=== PATIENT | female | born 1990 | race Caucasian/White ===

== ENCOUNTER → 2017-11-30 22:13 | Observation (INO) ==
--- NOTE | 2017-11-30 20:36 | OB/GYN Progress Note ---
Date of Encounter: 11/30/17 Time of Encounter: 20:34 - Assessment and Plan (1) 22 weeks gestation of Current Visit: Yes Status: Acute Vaginosis panel - Negative UA - not indicative of UTI Discharge home with PTL precautions Follow up in office with routine care. (2) Vaginal discharge during in second trimester Current Visit: Yes Status: Acute Subjective - Subjective Principal diagnosis: Leaking of fluid; vaginal spotting Interval history: Ms Cavaozs is a at 22 weeks 3 days gestation that arrives to triage with c/o vaginal discharge and pink spotting that began yesterday. She states positive movement. She denies intercourse in the past 48 hours, headaches , vision changes, epigastric pain, and contractions. Antepartum ROS: new complaints, movement normal, no loss of fluid, no vaginal bleeding, no contractions Objective - Vital Signs Vital Signs: Intake and Output 11/30/17 11/30/17 11/30/17 07:59 15:59 23:59 Other: Weight 98.5 kg Patient Weight 11/30/17 23:59 Weight 98.5 kg - Exam FHR: auscultation normal (FHTs 160 - appropriate for gestation. ) Abdomen: Present: normal appearance, soft, gravid. Absent: tenderness Uterus: Present: normal. Absent: firm, tenderness Comments: SSE - cervix visually closed, moderate amount thick white/milky discharge, no pooling noted, no fluid coming directly from cervix
[2017-11-30 21:27] LABS: Amphetamine Screen,Urine Negative ng/mL (Cutoff=1000); Barbiturate Screen,Urine Negative ng/mL (Cutoff=200); Benzodiazepines Screen,Urine Negative ng/mL (Cutoff=200); Cannabinoid Screen,Urine Negative ng/mL (Cutoff = 50); Cocaine Screen,Urine Negative ng/mL (Cutoff= 300); Opiate Screen,Urine Negative ng/mL (Cutoff=300); Phencyclidine Screen,Urine Negative ng/mL (Cutoff=25)
[2017-11-30 21:31] LABS: Bilirubin,Urine Negative (Negative); Blood,Urine Negative (Negative); Clarity,Urine Clear (Clear); Color,Urine Yellow (Yellow); Glucose,Urine (UA) Normal (Normal); Ketones,Urine Negative (Negative); Leukocyte Esterase,Urine Negative (Negative); Nitrite,Urine Negative (Negative); Protein,Urine Negative (Neg-Trace); Specific Gravity,Urine 1.018 (1.010-1.025); Urobilinogen,Urine Normal (Normal)
[2017-11-30 21:48] LABS: Candida DNA Not Detected (Not Detect); Gardnerella DNA Not Detected (Not Detect); Trichomonas DNA Not Detected (Not Detect)
== END | disposition home or self-care (01) ==
LOC: 1NENULAB
PROVIDERS: ADMIT Advanced Practice Midwife; ATTEND Advanced Practice Midwife

== ENCOUNTER 2018-02-07 13:37 | Observation (INO) ==
[2018-02-07] MEDS ORDERED: Isovue-370 500 ML INFUS..BTL IV ONE ×2 (14:26→14:41)
--- NOTE | 2018-02-07 14:26 | OB/GYN History & Physical ---
Date of Encounter: 02/07/18 Time of Encounter: 14:01 Assessment and Plan (1) 32 weeks gestation of Current visit: Yes Status: Acute NST reactive. No related concerns. Plan for discharge home once CT resulted and pt cleared by internal medicine. (2) Iliac vein thrombosis Current visit: Yes Status: Acute Consult hospitalist recommends to consult hematology. Ish Galindo, horticultural nursery assistant recommends lovenox 1mg/kg BID and CTA of chest to rule out PE. Per hematology pt can be discharged home on lovenox and follow-up with them on Monday. Qualifiers: Laterality: left Qualified Code(s): I82.422 - Acute embolism and thrombosis of left iliac vein (3) Chronic hypertension affecting Current visit: Yes Status: Acute BP stable on metropolol (4) Obesity complicating in third trimester Current visit: Yes Status: Acute History of Present Illness Chief complaint: DVT HPI: Ms. Cavazos is a 27 year old female presenting at 32w2d as a direct admit for DVT. She had an MRI yesterday for left hip pain and thigh numbness that was read as: "heterogenous signal in the left common illiac vein possible artifact or thrombosis". Upon reviewing this result the pt was sent immediately for LE venous doppler. Venous doppler shows distal illiac thrombus. This has been complicated by tachycardia for which pt saw cardiology. Today pt reports some intermittent SOB with ambulation that has been present for the last two weeks. She has not reported this prior to now. Pt denies any contractions, leaking, bleeding or other related complaints. Good FM. Past Med Surg Social Fam HX - Past Medical History Medical history: hypertension Psychiatric history: depression - Social History Smoking Status: Never smoker Alcohol use: none Drug use: none - Family History Mother Living Status: Still Living Hx Family Cardiac Disorders: No Hx Family Respiratory Disorders: No Hx Family Cancer: No Hx Family GI Disorders: No Hx Family Genitourinary Disorders: No Hx Family Endocrine Disorder: No Hx Family Musculoskeletal Disorders: No Hx Family Neuromuscular Disorders: No Hx Family Neurologic Disorders: No Hx Family HEENT Disorders: No Hx Family Autoimmune Disorders: No Hx Family Reproductive Disorders: No Hx Family Psychosocial Disorders: No Hx Family Medical Disorders: No Obstetrical History - Pregnancies : 1 Medications and Allergies Cetirizine HCl [Zyrtec] 10 mg PO DAILY 11/30/17 [History] Cholecalciferol (Vitamin D3) [Vitamin D3] 5,000 unit PO DAILY 11/30/17 [History] Docusate Sodium [Dulcolax Stool Softener] 100 mg PO DAILY 11/30/17 [History] Lactobacillus Acidophilus [Acidophilus Probiotic] 1 mg PO DAILY 11/30/17 [ History] Magnesium Oxide [Magnesium] 250 mg PO DAILY 11/30/17 [History] Metoprolol Succinate 75 mg PO DAILY 11/30/17 [History] Vit #108/Iron/FA [ One Tablet] 1 each PO DAILY 11/30/17 [ History] 3 Allergy/AdvReac Type Severity Reaction Status Date / Time Penicillins Allergy See Verified 11/30/17 20:20 Comments sulfamethoxazole Allergy Rash Verified 11/30/17 20:20 [From Bactrim] trimethoprim [From Bactrim] Allergy Rash Verified 11/30/17 20:20 Review of System OB All systems PM: reviewed and no additional remarkable complaints except as stated Exam - Constitutional Constitutional: well developed, well nourished, no acute distress - HEENT HEENT: Mucus Membranes Moist - Lungs Respiratory exam: CTAB - Cardiovascular Cardiovascular exam: RRR, tachycardia (pulse 100) - Abdomen Abdomen: Present: gravid, non tender - Extremities Extremities exam: normal inspection (normal pulses in feet bilaterally) Results Result Diagrams: 02/07/18 14:44 02/07/18 14:44 All other labs normal.
[2018-02-07 15:12] LABS: Basophils # 0.1 K/mcL (0.0-0.2); Basophils % 0.4 %; Eosinophils # 0.1 K/mcL (0.0-0.6); Eosinophils % 0.7 %; Hematocrit 34.5 % (35.3-44.9); Hemoglobin 11.6 g/dL (11.5-15.4); Lymphocytes # 2.4 K/mcL (0.6-4.6); Lymphocytes % 19.8 %; Mean Corpuscular HGB Conc 33.6 g/dL (31.6-35.5); Mean Corpuscular Hemoglobin 30.9 pg (28.0-33.3); Mean Platelet Volume 9.4 fL (9.4-12.4); Monocytes % 7.8 %; Neutrophils # 8.6 K/mcL (1.6-8.9); Platelet Count 284 K/mcL (140-400); Red Blood Count 3.75 M/mcL (3.82-4.97); Red Cell Distribution Width 13.9 % (11.5-14.5); Segmented Neutrophils % 70.3 %
[2018-02-07 15:16] LABS: Prothrombin Time 11.8 Seconds (9.4-12.1)
[2018-02-07 15:19] LABS: Activated Partial Thrombo Time 29.8 Seconds (26.0-36.0)
[2018-02-07 15:29] LABS: BUN/Creatinine Ratio 11 (6-26); Blood Urea Nitrogen 6 mg/dL (6-20); Carbon Dioxide 23 mEq/L (23-29); Chloride 106 mEq/L (98-107); Sodium 138 mEq/L (136-145)
[2018-02-07 15:30] LABS: Calcium 9.5 mg/dL (8.6-10.3); Glucose 101 mg/dL (70-105); Osmolality,Calculated 284 (280-300); eGFR For Non-African Americans > 60 (> 60)
[2018-02-07 17:06] LABS: Amphetamine Screen,Urine Negative ng/mL (Cutoff=1000); Barbiturate Screen,Urine Negative ng/mL (Cutoff=200); Benzodiazepines Screen,Urine Negative ng/mL (Cutoff=200); Cannabinoid Screen,Urine Negative ng/mL (Cutoff = 50); Cocaine Screen,Urine Negative ng/mL (Cutoff= 300); Opiate Screen,Urine Negative ng/mL (Cutoff=300); Phencyclidine Screen,Urine Negative ng/mL (Cutoff=25)
--- NOTE | 2018-02-07 17:41 | Internal Medicine Consult Note ---
Date of Encounter: 02/07/18 Time of Encounter: 15:00 - Assessment and plan (1) Iliac vein thrombosis Current Visit: Yes Status: Acute Assessment and plan: MRI of the lumbar spine showed a heterogeneous signal in the left common iliac vein. CT PA showed no obvious PE identified and no evidence of right heart strain. Patient is hemodynamically stable and without any acute respiratory distress. Recommendations for patient to be discharged on therapeutic Lovenox (Lovenox 1mg /kg) Patient to follow-up with hematology oncology as outpatient. Qualifiers: Laterality: left Qualified Code(s): I82.422 - Acute embolism and thrombosis of left iliac vein (2) 32 weeks gestation of Current Visit: Yes Status: Acute Assessment and plan: Managed by WET PROCESS MILLER HEAD ASSISTANT (3) Chronic hypertension affecting Current Visit: Yes Status: Acute Assessment and plan: Continue home dose of beta [place] - Time Spent With Patient Total time spent is greater than 50% in coordination of care (as documented) at patient's floor/unit and/or counseling patient: Internal Medicine - CN: HPI - Data of Consult Consult date: 02/07/18 Requesting Physician: Clifton Quintana - Consult Narrative History of present illness: Patient is a 27-year-old female at 32 weeks and 2 days with history of hypertension and mood disorder who presents to the ER on 02/07/18 due to left hip pain. MRI of the hip on 02/06/18 showed no etiology identified to explain left thigh pain. MRI of the lumbar spine showed a heterogeneous signal in the left common iliac vein. Patient was directly admitted to the OB unit for treatment and evaluation of DVT. Hospitalist service was consulted for recommendations for medical management of DVT. Past Med Surg Social Fam HX - Past Medical History Medical history: hypertension Psychiatric history: depression - Past Surgical History Surgical History: non-contributory - Social History Smoking Status: Never smoker Smokeless Tobacco Status: No Alcohol use: none Drug use: none - Family History Mother Living Status: Still Living Hx Family Cardiac Disorders: No Hx Family Respiratory Disorders: No Hx Family Cancer: No Hx Family GI Disorders: No Hx Family Genitourinary Disorders: No Hx Family Endocrine Disorder: No Hx Family Musculoskeletal Disorders: No Hx Family Neuromuscular Disorders: No Hx Family Neurologic Disorders: No Hx Family HEENT Disorders: No Hx Family Autoimmune Disorders: No Hx Family Reproductive Disorders: No Hx Family Psychosocial Disorders: No Hx Family Medical Disorders: No All systems: reviewed and no additional remarkable complaints except as stated Internal Medicine - CN: Meds Cetirizine HCl [Zyrtec] 10 mg PO DAILY 11/30/17 [History] Cholecalciferol (Vitamin D3) [Vitamin D3] 5,000 unit PO DAILY 11/30/17 [History] Docusate Sodium [Dulcolax Stool Softener] 100 mg PO DAILY 11/30/17 [History] Lactobacillus Acidophilus [Acidophilus Probiotic] 1 mg PO DAILY 11/30/17 [ History] Magnesium Oxide [Magnesium] 250 mg PO DAILY 11/30/17 [History] Metoprolol Succinate 75 mg PO DAILY 11/30/17 [History] Vit #108/Iron/FA [ One Tablet] 1 each PO DAILY 11/30/17 [ History] Enoxaparin [Lovenox *PHARMACY WT BASED*] 100 mg SQ Q12HR #60 syringe 02/07/18 [ Rx] 3 Allergy/AdvReac Type Severity Reaction Status Date / Time Penicillins Allergy See Verified 11/30/17 20:20 Comments sulfamethoxazole Allergy Rash Verified 11/30/17 20:20 [From Bactrim] trimethoprim [From Bactrim] Allergy Rash Verified 11/30/17 20:20 Hospitalist - CN: Exam - Constitutional General appearance IM: Present: A&O X 3, no acute distress Exam: As below - Head Head exam: Present: normocephalic - Eye Eye exam: Present: normal appearance - ENT ENT exam: Present: mucous membranes moist - Expanded ENT Exam Mouth exam: Absent: dry mucosa - Respiratory Respiratory exam: Present: CTAB. Absent: accessory muscle use - Cardiovascular Cardiovascular exam IM: Present: RRR - GI/Abdominal Additional comments: Gravid - Extremities Exam Extremities exam IM: Absent: pedal edema - Neurological Exam Neurological exam: Present: alert. Absent: altered - Expanded Neurological Exam Patient oriented to: Present: person, place, time - Psychiatric Psychiatric exam: Present: normal mood - Skin Skin exam IM: Present: normal color Internal Medicine - CN: Reslt - Labs CBC & Chem 7: 02/07/18 14:44 02/07/18 14:44 Labs: Short CBC 02/07/18 Range/Units 14:44 WBC 12.2 H (4.3-11.1) K/mcL Hgb 11.6 (11.5-15.4) g/dL Hct 34.5 L (35.3-44.9) % Plt Count 284 (140-400) K/mcL Neutrophils # 8.6 (1.6-8.9) K/mcL BMP 02/07/18 14:44 Sodium 138 Potassium 4.0 Chloride 106 Carbon Dioxide 23 BUN 6 Creatinine 0.53 L Glucose 101 Calcium 9.5 - ABG Interpretation ABG results: PT/INR, D-dimer PT 11.8 Seconds (9.4-12.1) 02/07/18 14:44 - Impressions Impressions Chest CTA 02/07/18 14:41 IMPRESSION: Suboptimal examination due to respiratory motion artifact. No obvious pulmonary embolism identified. No evidence for right heart strain, dilatation of the main pulmonary artery, or pulmonary infarction. D/ / Scott Ferreira MD / Scott Ferreira MD Interpreting Provider: Scott Ferreira MD Consult Discharge Plan - Plan Referrals: Tere Bautista DO [Primary Care Provider] - Prescriptions: Enoxaparin [Lovenox *PHARMACY WT BASED*] 100 mg SQ Q12HR #60 syringe
[2018-02-07] MEDS ORDERED: *HR* Enoxaparin 100 MG/ML SYRINGE SQ SCH (18:00)
== END 2018-02-07 18:59 | disposition home or self-care (01) ==
LOC: 1NENULAB
PROVIDERS: ADMIT Registered Nurse; ATTEND Registered Nurse

== ENCOUNTER 2018-03-21 04:00 | Inpatient (IN) ==
[2018-03-21] MEDS ORDERED: Naloxone 0.4 MG/ML INJ IVP PRN ×2 (05:21→20:24)
[2018-03-21] MEDS ORDERED: Famotidine 20 MG/2 ML VIAL IVP PRN (05:21)
[2018-03-21] MEDS ORDERED: *HR* Nalbuphine 10 MG/ML AMPUL IVP PRN (05:21)
[2018-03-21] MEDS ORDERED: Ondansetron 4 MG/2 ML VIAL IVP PRN ×2 (05:21→20:24)
[2018-03-21] MEDS ORDERED: Metoclopramide 10 MG/2 ML VIAL IVP PRN (05:21)
[2018-03-21] MEDS ORDERED: Lidocaine 1% 20 ML MDV INFILT PRN (05:21)
[2018-03-21] MEDS ORDERED: Ringers Solution, Lactated 1,000 ML IVC SCH (05:30)
[2018-03-21 06:41] LABS: Amphetamine Screen,Urine Negative ng/mL (Cutoff=1000); Barbiturate Screen,Urine Negative ng/mL (Cutoff=200); Basophils # 0.1 K/mcL (0.0-0.2); Basophils % 0.4 %; Benzodiazepines Screen,Urine Negative ng/mL (Cutoff=300); Cannabinoid Screen,Urine Negative ng/mL (Cutoff = 50); Cocaine Screen,Urine Negative ng/mL (Cutoff= 300); Eosinophils # 0.1 K/mcL (0.0-0.6); Eosinophils % 0.7 %; Hematocrit 35.4 % (35.3-44.9); Immature Granulocytes % 0.9 % (0-4); Lymphocytes # 3.4 K/mcL (0.6-4.6); Lymphocytes % 24.9 %; Mean Corpuscular HGB Conc 33.9 g/dL (31.6-35.5); Mean Corpuscular Hemoglobin 30.8 pg (28.0-33.3); Mean Platelet Volume 9.7 fL (9.4-12.4); Monocytes # 1.1 K/mcL (0.0-1.3); Monocytes % 7.8 %; Neutrophils # 8.8 K/mcL (1.6-8.9); Opiate Screen,Urine Negative ng/mL (Cutoff=300); Phencyclidine Screen,Urine Negative ng/mL (Cutoff=25); Platelet Count 264 K/mcL (140-400); Red Blood Count 3.89 M/mcL (3.82-4.97); Red Cell Distribution Width 13.4 % (11.5-14.5); Segmented Neutrophils % 65.3 %
[2018-03-21] MEDS ORDERED: Acetaminophen 325 MG TABLET PO ONE (08:54)
[2018-03-21] MEDS ORDERED: NIFEdipine 10 MG CAPSULE PO ONE (08:55)
[2018-03-21 08:59] LABS: Alanine Aminotransferase 14 Units/L (7-52); Aspartate Amino Transferase 20 Units/L (13-39); BUN/Creatinine Ratio 17 (6-26); Blood Urea Nitrogen 9 mg/dL (6-20); Lactate Dehydrogenase 154 Units/L (140-271); Uric Acid 5.3 mg/dL (2.3-7.6); eGFR For Non-African Americans > 60 (> 60)
[2018-03-21 09:08] LABS: Protein/Creatinine Ratio,Urine 0.18 mg/mg (0.00-0.20)
--- NOTE | 2018-03-21 10:02 | OB/GYN History & Physical ---
Date of Encounter: 03/21/18 Time of Encounter: 07:00 Assessment and Plan (1) 38 weeks gestation of Current visit: Yes Status: Acute Admit for IOL per [facility] recommendations. Pt has a plan and desires to avoid an epidural if possible. She prefers as little medication for induction as absolutely necessary. Terry balloon placed above cervix using sterile technique. Balloon inflated with 30ml sterile water. Pt tolerated well. Pt to pump breasts and ambulate to stimulate contractions. Will consider AROM vs medication once terry balloon out. POC discussed with Dr. Sandoval. (2) Chronic hypertension affecting Current visit: No Status: Acute BP mild range despite metropolol this am. Procardia 10mg given per Dr. Sandoval's recommendation. PIH labs WNL. Pt to be allowed to ambulate once BP is in the normal range. POC per Dr. Sandoval (3) Iliac vein thrombosis Current visit: No Status: Acute DVT resolved on last doppler exam. Pt on lovenox 100mg BID until 2 days ago. Plan to restart approx 48 hours after delivery with one prophylactic dose lovenox on PPD#1 if low risk for bleeding af ter delivery. This is per recommendation of Dr. Blum. Pt ok for CNM delivery per Dr. Blum as well. Plan for co-management with Dr. Sandoval. Qualifiers: Laterality: left Qualified Code(s): I82.422 - Acute embolism and thrombosis of left iliac vein (4) Obesity complicating in third trimester Current visit: No Status: Acute History of Present Illness Chief complaint: IOL HPI: Ms. Florez is a 27 year old female presenting at 38 weeks 2 days for scheduled IOL. Pt scheduled for IOL per [facility] due to her therapeutic lovenox. Pt diagnosed with DVT in left distal illiac vein during this . Her lovenox is being managed by her behavioral science chair. She has seen [facility] x2 and they recommended stopping lovenox 2 days prior to IOL at 38 weeks gestation. This is also complicated by chronic hypertension and obesity. O positive Rubella and varicella immune Serologies negative GBS negative PIH labs WNL. Past Med Surg Social Fam HX - Past Medical History Medical history: DVT, hypertension Additional medical history: Left Iliac Vein Psychiatric history: depression - Past Surgical History Surgical History: non-contributory Additional surgical history: wisdom teeth extraction - Social History Smoking Status: Never smoker Smokeless Tobacco Status: No Alcohol use: none Drug use: none - Family History Mother Living Status: Still Living Hx Family Cardiac Disorders: No Hx Family Respiratory Disorders: No Hx Family Cancer: No Hx Family GI Disorders: No Hx Family Endocrine Disorder: No Hx Family Neuromuscular Disorders: No Hx Family Neurologic Disorders: No Hx Family HEENT Disorders: No Hx Family Autoimmune Disorders: No Obstetrical History - Pregnancies : 1 Medications and Allergies Cetirizine HCl [Zyrtec] 10 mg PO DAILY 11/30/17 [History] Cholecalciferol (Vitamin D3) [Vitamin D3] 5,000 unit PO DAILY 11/30/17 [History] Docusate Sodium [Dulcolax Stool Softener] 100 mg PO DAILY 11/30/17 [History] Lactobacillus Acidophilus [Acidophilus Probiotic] 1 mg PO DAILY 11/30/17 [History] Magnesium Oxide [Magnesium] 250 mg PO DAILY 11/30/17 [History] Metoprolol Succinate 75 mg PO DAILY 11/30/17 [History] Enoxaparin [Lovenox *PHARMACY WT BASED*] 100 mg SQ Q12HR #60 syringe 02/07/18 [Rx] Ferrous Sulfate [Iron] 325 mg PO DAILY 02/20/18 [History] Formula Tablet 03/21/18 [History] Allergy/AdvReac Type Severity Reaction Status Date / Time Penicillins Allergy See Verified 03/21/18 06:07 Comments sulfamethoxazole Allergy Rash Verified 03/21/18 06:07 [From Bactrim] trimethoprim [From Bactrim] Allergy Rash Verified 03/21/18 06:07 Review of System OB All systems PM: reviewed and no additional remarkable complaints except as stated Exam - Constitutional Constitutional: well developed, well nourished, no acute distress - HEENT HEENT: Mucus Membranes Moist - Lungs Respiratory exam: CTAB - Cardiovascular Cardiovascular exam: RRR, tachycardia (tachycardia noted this am, now improved) - Abdomen Abdomen: Present: gravid, non tender - Extremities Extremities exam: normal inspection Deep Tendon Reflex Grade: 2+ Normal - Vulva Vulva: bilateral: normal - Vagina Vagina: Present: normal moisture - Cervix Dilation: 0 (fingertip) Effacement: 50 Station: -2 - Anus/Rectum Anus/Rectum: Present: normal perianal skin Results Result Diagrams: 03/21/18 06:25 03/21/18 06:25 Abnormal lab results WBC 13.5 K/mcL (4.3-11.1) H 03/21/18 06:25 Creatinine 0.52 mg/dL (0.60-1.20) L 03/21/18 06:25 Urine Total Protein 16 mg/dL (1-14) H 03/21/18 06:25 All other labs normal.
--- NOTE | 2018-03-21 11:15 | OB Labor Progress Note ---
Date of Encounter: 03/21/18 Time of Encounter: 11:13 Labor Progress Note - Subjective Subjective: Pt denies contraction pain at this time. No other complaints. - Cervix Cervix: /-1 - Heart Tones Heart Tones: Category I - Gratis Gratis: rare UC - Interventions Interventions: AROM for small amount blood tinged fluid - Plan Plan: Allow ambulation once BP normal range. Expectant management for now. Will augment with pitocin if needed.
[2018-03-21] MEDS ORDERED: Oxytocin 20 units/ LR 1000 mL 20 UNIT/1,000 ML BAG IVC SCH (14:30)
--- NOTE | 2018-03-21 18:47 | OB Labor Progress Note ---
Date of Encounter: 03/21/18 (n) Time of Encounter: 18:42 Labor Progress Note - Subjective Subjective: Pt reports increasing pain with contractions. - Cervix Cervix: 3-4/70/-1 - Heart Tones Heart Tones: Category I - [place]: Q 2-3 minutes - Interventions Interventions: IUPC and FSE placed. - Plan Plan: Continue to monitor and titrate pitocin. Pitocin decreased to 4mu's at this time.
[2018-03-21] MEDS ORDERED: EPHEDrine 50 MG/ML VIAL IVP PRN (20:24)
[2018-03-21] MEDS ORDERED: *HR* Ropivacaine/PF 0.2% 20 ML VIAL EP ONE (20:24)
[2018-03-21] MEDS ORDERED: *HR* FentaNYL (PF) 100 MCG/2 ML VIAL EP ONE (20:24)
[2018-03-21] MEDS ORDERED: Bupivacaine-MPF 0.25% 10 ML VIAL EP ONE (20:24)
--- NOTE | 2018-03-21 20:29 | Anesthesia Evaluation PreOp ---
Date of Encounter: 03/21/18 Time of Encounter: 20:26 - Past History Planned Operation: OLIVIA Cardiac History: Arrhythmia (hx tachycardia during , currently treated with metoprolol- last dose 529), Other (Procardia dose today for HTN) Pulmonary History: Denies Any Significant HX PACKER INSULATION History: Denies Any Significant HX Other Medical History: Denies Any Significant HX, Other (Left Iliac DVT treated with lovenox BID. Last dose Monday) Anesthesia History: No Prior Anesthetic Complications, Past Anesthesia ([place] teeth extraction) : Yes Test: Positive Alcohol Use: none Drug use: none Medications and Allergies Cetirizine HCl [Zyrtec] 10 mg PO DAILY 11/30/17 [History] Cholecalciferol (Vitamin D3) [Vitamin D3] 5,000 unit PO DAILY 11/30/17 [History] Docusate Sodium [Dulcolax Stool Softener] 100 mg PO DAILY 11/30/17 [History] Lactobacillus Acidophilus [Acidophilus Probiotic] 1 mg PO DAILY 11/30/17 [History] Magnesium Oxide [Magnesium] 250 mg PO DAILY 11/30/17 [History] Metoprolol Succinate 75 mg PO DAILY 11/30/17 [History] Enoxaparin [Lovenox *PHARMACY WT BASED*] 100 mg SQ Q12HR #60 syringe 02/07/18 [Rx] Ferrous Sulfate [Iron] 325 mg PO DAILY 02/20/18 [History] Formula Tablet 03/21/18 [History] Allergy/AdvReac Type Severity Reaction Status Date / Time Penicillins Allergy See Verified 03/21/18 06:07 Comments sulfamethoxazole Allergy Rash Verified 03/21/18 06:07 [From Bactrim] trimethoprim [From Bactrim] Allergy Rash Verified 03/21/18 06:07 - Meds/Allergy Pre-op Review Medications Reviewed: Yes Allergies Reviewed: Yes Beta Blockers on Current Med List: No Anesthesia Results - Labs 03/21/18 06:25 03/21/18 06:25 Anesthesia Exam BP 129/75 T 98.2 P 96 R 16 Height: 5'3" Weight: 105.8 NPO (# of Hours): 5 hrs Pain Scale: 4 Pain Scale Used: Numeric (1 - 10) - HEENT Pupil (Motor): Pupils equal Mallampati: II Teeth: Normal Oral Opening: Greater than 3 - PACKER INSULATION LOC: Oriented PACKER INSULATION Motor: Normal RUE, Normal LUE, Normal RLE, Normal LLE, Normal Face PACKER INSULATION Sensory: Normal: RUE, LUE, RLE, LLE, Face - Cardiac Rhythm: Regular Murmur: None JVD: No Carotid Bruit: No - Pulmonary Breath Sounds: bilateral Clear Respiratory Effort: Symmetrical Anesthesia Assess/Plan ASA Score: 2 Modified Olman Scale for Level of Consciousness: Cooperative, oriented, and tranquil Anesthetic Plan: Regional Autologous Blood: No Monitoring Plan: Standard Monitors Recovery Plan: Other
[2018-03-21] MEDS ORDERED: Epidural Premix (fent/bupiv) 110 ML EP SCH (20:30)
[2018-03-21] MEDS ORDERED: *HR* FentaNYL (PF) 100 MCG/2 ML VIAL ONE (20:45)
[2018-03-21] MEDS ORDERED: *HR* Ropivacaine/PF 0.2% 20 ML VIAL ONE (20:46)
[2018-03-21] MEDS ORDERED: Lidocaine -MPF 2% 5 ML VIAL ONE (20:46)
--- NOTE | 2018-03-21 21:25 | Anesthesia Procedures ---
Date of Encounter: 03/21/18 Time of Encounter: 20:49 Procedures: Anesthesia - Epidural/Spinal Patient ID/Chart reviewed: Yes Patient examined: Yes OB Eval: Gestational age: 38.2 OB Eval: : 1 OB Eval: Hx Para: 0 OB Eval: Dilated at (cm): 4 OB Eval: Contractions: Non-stressed pattern Consent Obtained: Yes Supplemental Oxygen: None/Room Air Site Prep: Aseptic Technique, Sterile prep and drape, Povidone-Iodine 1% Patient position: upright Local Anesthetic: Lidocaine 1% Amount of Local Anesthetic used: 3 Touhy Needle Gauge: 18 Touhy Needle Depth (cm): 6 Catheter Depth at Skin (cm): 15 Test Dose (1.5% Lido + Epi): Volume given (mls): 3 Test Dose Result: Negative Loading Dose: Fentanyl (mcg): 100 Loading Dose: Other: Ropivicaine 0.2% 8ml Loading Dose Administered: Thru Catheter Infusion Med: 0.125% Bupivacaine w/ 2 mcg/ml Fentanyl Infusion Rate (mls/hr): [address]: Tegaderm, Tape Interspace Used: L4-L5 Loss of Resistance (YOUSIF): Yes Blood: No CSF: No Paresthesia: No Procedure: OLIVIA placed 2nd pass in upright position without any immediate noted complications. VSS and FHT stable throughout. Vitals + FHT's: 2049 BP 126/77 P 103 R 20 2116 BP 132/77 P 105 R 16 FT 140s
--- NOTE | 2018-03-22 07:14 | Anesthesia Progress Note ---
Date of Encounter: 03/22/18 Time of Encounter: 07:05 Anesthesia Note - Note Note: 03/22/18 07:12 Called to patient bedside for stabbing pain in her groin. Epidural in position as originally placed. Bolus dose Naropin 0.2% 8ml administered for discomfort. Pt stating immediate relief.
[2018-03-22] MEDS ORDERED: Lidocaine -MPF 2% 5 ML VIAL ONE (07:42)
[2018-03-22] MEDS ORDERED: Acetaminophen 325 MG TABLET PO ONE (09:56)
--- NOTE | 2018-03-22 10:43 | Anesthesia Progress Note ---
Date of Encounter: 03/22/18 Time of Encounter: 07:55 Anesthesia Note - Note Note: 03/22/18 07:55 Called to bedside for abdominal pain with contractions. Epidural dressing removed and catheter pulled back to 10cm at skin prior to applying a new sterile dressing. Bolus with 5cc 2% lidocaine plain. Will reassess in 10 min
--- NOTE | 2018-03-22 10:47 | OB Labor Progress Note ---
Date of Encounter: 03/22/18 Time of Encounter: 08:49 Labor Progress Note - Subjective Subjective: Pt now more comfortable after epidural bolus - Cervix Cervix: 7/100/0 - Heart Tones Heart Tones: Category I - [place]: 2-3 minutes - Plan Plan: Continue to monitor and reposition frequently. POC discussed with Dr. Anderson. Will begin antibiotics given membranes have been ruptured for >18 hours. Anticipate .
[2018-03-22] MEDS ORDERED: *HR* HYDROmorphone (PF) 1 MG/ML SYRINGE IVP ONE ×2 (12:10→14:23)
[2018-03-22] MEDS ORDERED: Chloroprocaine/PF 20 ML VIAL INFILT ONE (12:15)
--- NOTE | 2018-03-22 12:23 | Anesthesia Progress Note ---
Date of Encounter: 03/22/18 Time of Encounter: 12:20 Anesthesia Note - Note Note: 03/22/18 12:21 Called to bedside after delivery to assess pain level during repair of grade 2 vaginal tear. After discussion with Dr Anderson and Nguyen Jay, PHYS ASSISTANT it was decided to dose the epidural with 10cc 3% chloroprocaine to give time to repair tear.
[2018-03-22 12:37] LABS: Basophils % 0.2 %; Hemoglobin 12.6 g/dL (11.5-15.4); Lymphocytes # 1.7 K/mcL (0.6-4.6); Lymphocytes % 6.8 %; Mean Corpuscular HGB Conc 33.2 g/dL (31.6-35.5); Mean Corpuscular Hemoglobin 30.7 pg (28.0-33.3); Mean Corpuscular Volume 92.5 fL (83.0-100.0); Mean Platelet Volume 9.7 fL (9.4-12.4); Monocytes # 1.5 K/mcL (0.0-1.3); Monocytes % 6.1 %; Platelet Count 315 K/mcL (140-400); Red Blood Count 4.11 M/mcL (3.82-4.97); Red Cell Distribution Width 13.7 % (11.5-14.5); Segmented Neutrophils % 85.9 %
[2018-03-22 12:38] LABS: Basophils # 0.1 K/mcL (0.0-0.2)
[2018-03-22] MEDS ORDERED: *HR* Phenylephrine 10 MG/ML VIAL ONE (12:40)
[2018-03-22 12:50] LABS: Prothrombin Time 11.5 Seconds (9.4-12.1)
[2018-03-22 12:51] LABS: Activated Partial Thrombo Time 27.6 Seconds (26.0-36.0)
--- NOTE | 2018-03-22 12:58 | OB/GYN Procedure Note ---
Delivery - Delivery Date: 03/22/18 Provider: Nguyen Hood Intrapartum events: prolonged labor- > = 20hr Delivery induction: AROM, terry Delivery augmentation: pitocin Delivery monitor: internal FHT, internal uterine Anesthesia: epidural Quantitated Blood Loss: 1,000 - Infant (s) A Infant Delivery Date: 03/22/18 Delivery Time: 11:59 Presentation: vertex Position: OA Route of delivery: Gender: Male Viability: Viable Pounds: 7 Ounces: 14 Weight Gram: 3.585 kg at 1 minute: 6 at 5 mins: 9 Shoulder Dystocia: encountered Shoulder Dystocia Maneuvers: Rip maneuver, Huang Screw maneuver Specimens collected: cord blood, venous cord gases, arterial cord gases Placenta: spontaneous Cord: nuchal cord, 3 umbilical vessels, nuchal reduced - Repair Episiotomy: none Laceration Description: Perineal - 1st Degree - Complications Delivery complications: hemorrhage, uterine atony Delivery comments: Pt presented for IOL per MFM recommendation. She underwent terry and AROM and then received pitocin augmentation. She received an epidural for pain control. She then progressed slowly to . At delivery of the head a loose nuchal was easily reduced. A turtle sign was then noted and shoulder dystocia was immediately recognized. At this time we called for help. Delivery of the posterior arm was attempted but unsuccessful. Rotational maneuvers were then employed. The was in ANDREW position. Gentle pressure was applied to the posterior shoulder to rotate the baby to direct OA position. The shoulders then followed with maternal effort only. Total dystocia time <1 minute. No traction was placed on head at any time. Dr. Anderson arrived at the time of delivery. At this time the cord was milked and cut and the placenta delivered spontaneous and intact. Brisk lochia was immediately noted. At this time the IV access with pitocin was found to be out. Cytotec 1000mcg rectal and 10units pitocin IM were given while bimanual compression was held. Brisk lochia continued. EBL at this time was 700ml. A new IV was placed and labs were drawn. Tachycardia to the 140's was noted at this time. BP stable. IV fluids started for bolus. Dr. Anderson assessed pt at this time and performed bimanual exam. Fundus began to firm and lochia became electronic assembler. EBL 1000ml total. A first degree laceration was repaired with 2-0 monocryl. Following procedure pt is and reports feeling tired but otherwise well. The was 7lbs 14oz with apgars 6 at one minute and 9 at five minutes. Maternal hgb 12.6 with CBC drawn during procedure. Will hold transfusion at this time. Entire plan was discussed throughout procedure with Dr. Anderson who was in attendance. Plan to restart lovenox on 03/24 per [facility] recommendations. - Disposition Mom disposition: stable in LDR [place] disposition: stable in LDR
--- NOTE | 2018-03-22 17:18 | Event Note ---
<Nicole Topete - Last Filed: 03/22/18 18:00> Date of Encounter: 03/22/18 Time of Encounter: 16:00 RN contacted OB team to inform that the patient had one episode of painless hemoptysis. I went to the bedside to further assess the patient. HPI: Patient is a 27 yr old female s/p vaginal delivery and post hemorrhage today. complicated by left iliac DVT and lovenox therapy. The last ultrasound study of the iliac DVT was performed about 2 weeks ago and showed resolution of DVT. Lovenox was discontinued 2 days ago in anticipation of labor. About 4 hours after delivery, the patient was resting in her room when she had one episode of painless hemoptysis. She stated that she felt mucus in her throat and coughed into a paper towel which had about 3 cm of bright red sputum expressed. She denied chest pain, pleuritic chest pain, shortness of breath, lightheadedness, presyncope, or calf pain. Vitals: HR 99, RR 12, BP 132/82 and spo2 96% Exam Cardio: RRR, no murmurs rubs or gallops Pulm: Clear to auscultation bilaterally, no wheezes, rales or rhonchi, symmetrical chest expansion Abdomen: soft, non distended, normal bowel sounds Extremities: 1+ edema bilaterally, no erythema, no cords, no tenderness to palpation. Maria Alejandra sign negative bilaterally. Assessment/plan Hemoptysis: hospitalist service was consulted to evaluate for DVT/PE. Per hospitalist, ordered 2 view chest XR and awaiting their plan for management. <Yamilka Anderson - Last Filed: 03/22/18 18:29> Attending Adm Certification - Admission Certification Admission Certification: For traditional Medicare patients the provided hospital inpatient services are reasonable and necessary and in the case of services not specified as inpatient-only under 42 CFR 419.22 (n), that they are appropriately provided as inpatient services in accordance 42 CFR 412.3. For Critical Access Hospital the patient may reasonably be expected to be discharged or transferred to a hospital within 96 hours after admission to the Critical Access Hospital. [facility] Certification: I certify that the beneficiary may reasonable be expected to be discharged or transferred to a hospital within 96 hours after admission to the Critical Access Hospital ([facility]). - Attending Attestation yamilka anderson md facog
[2018-03-22] MEDS ORDERED: Ibuprofen 600 MG TABLET PO PRN ×2 (18:44→18:49)
[2018-03-22] MEDS ORDERED: Acetaminophen 325 MG TABLET PO PRN (18:49)
[2018-03-22] MEDS ORDERED: Measles/Mumps/Rubella Vacc 0.5 ML VIAL SQ PRN (18:49)
--- NOTE | 2018-03-22 18:50 | Event Note ---
<Nicole Topete - Last Filed: 03/22/18 18:45> Date of Encounter: 03/22/18 Time of Encounter: 18:46 I went to speak to patient to let her know the results of chest XR and the plan as discussed with hospitalist in regards to further workup for DVT/PE. The patient is declining restarting lovenox therapy at 12 hours post as recommended by hospitalist. The hospitalist was called to discuss further management and work up of suspected DVT/PE with the patient. <Michael Anderson - Last Filed: 03/22/18 20:20> Michael Anderson MD FACOGl
[2018-03-22] MEDS ORDERED: Oxytocin 20 units/ LR 1000 mL 20 UNIT/1,000 ML BAG IVC SCH (19:00)
--- NOTE | 2018-03-22 20:15 | Internal Medicine Consult Note ---
Date of Encounter: 03/22/18 Time of Encounter: 18:00 - Assessment and plan (1) Hemoptysis Current Visit: Yes Status: Acute (2) Iliac vein thrombosis Current Visit: No Status: Acute Qualifiers: Laterality: left Qualified Code(s): I82.422 - Acute embolism and thrombosis of left iliac vein (3) HTN (hypertension) Current Visit: Yes Status: Acute Qualifiers: Hypertension type: essential hypertension Qualified Code(s): I10 - Essential (primary) hypertension - Time Spent With Patient Total time spent is greater than 50% in coordination of care (as documented) at patient's floor/unit and/or counseling patient: 25 - 35 minutes Internal Medicine - CN: HPI - Data of Consult Patient: new to practice Consult date: 03/22/18 Requesting Physician: Clifton Quintana - Consult Narrative Reason for consult: Hemoptysis History of present illness: I saw this patient around 6 PM. HPI: The patient is a 27-year-old woman. She had her vaginal delivery today late morning. It went in without any complications. It was around 3 PM when she had a short episode of coughing. She expectorated a small amount of pinkish/reddish in color phlegm. It was only one episode. Not associated with any other symptoms. Denies chest pain. Denies difficulty breathing. Pulse ox is 95% on room air. Basically, she feels normal self. It was on February 07, when she was diagnosed with DVT in distal left iliac vein. Subsequently, she was consulted by Dr. Galindo, hematology/oncology on February 09. He recommended subcutaneous Lovenox for the time of her . He recommended switching her to oral warfarin after delivery. Interestingly, repeated venous duplex on 02/21/18 showed normal findings. Her last dose of Lovenox was on March 18. The patient is not tachycardic or tachypneic. She maintains good blood pressure. Denies pain in legs. Denies abdominal pain, nausea and vomiting. She makes good amounts of urine. PAST MEDICAL HX: Positive for hypertension. She has no other significant problems. REVIEW OF SYSTEMS: All 14 organ systems were reviewed by me with the patient. Positive and pertinent negative findings are listed above. The rest of organ systems is negative. PHYSICAL EXAM: Skin: Free of rash and discoloration. Eyes: Sclera is white. There is no discharge from eyes. ENMT: Oral/pharyngeal mucosa is normal in appearance. There is no discharge from nose or ears. Respiratory: Normal breath sounds with no crackles and wheezes bilaterally. CV: Heart is regular with no gallop or murmur. GI: Abdomen is flat and soft with no palpable mass or visceromegaly. : There is no tenderness in patient's flanks bilaterally. Neuro exam: He has good strength in upper and lower extremities. He has normal eye movements. Psychiatric: He has normal affect. His thought process is appropriate to the situation. Additional testing: Hemoglobin is 12.6. WBC is 24.4 thousand; 13.5 thousand yesterday. She has normal platelet count. Pro time INR is 1.0. Her PTT is 27.6. Fibrinogen is 670. Her d-dimer is a 5493. The patient has normal BMP. Chest x-ray shows normal findings. Assessment and Plan: A short lasting episode of coughing with expectoration of a small amount of phlegm with a very small amount of blood. She does have history of her DVT; as described above. There is no other finding supporting diagnosis of pulmonary embolism. We could start this patient on Lovenox about 12 hours after delivery. However, the patient does not agree for that. She would rather like to started about 24 hours after delivery, as recommended by her tester semiconductor packages/oncologist. I will contact with Dr. Galindo as soon as possible (likely tomorrow morning). The patient is also refusing repeated venous duplex of lower extremities. I discussed my findings with resident physician in [facility] floor. Hypertension. Under control. We will re-start her Toprol XL. Past Med Surg Social Fam HX - Past Medical History Medical history: DVT, hypertension Additional medical history: Left Iliac Vein Psychiatric history: depression - Past Surgical History Surgical History: non-contributory Additional surgical history: wisdom teeth extraction - Social History Smoking Status: Never smoker Smokeless Tobacco Status: No Alcohol use: none Drug use: none - Family History Mother Living Status: Still Living Hx Family Cardiac Disorders: No Hx Family Respiratory Disorders: No Hx Family Cancer: No Hx Family GI Disorders: No Hx Family Endocrine Disorder: No Hx Family Neuromuscular Disorders: No Hx Family Neurologic Disorders: No Hx Family HEENT Disorders: No Hx Family Autoimmune Disorders: No Internal Medicine - CN: Meds Cetirizine HCl [Zyrtec] 10 mg PO DAILY 11/30/17 [History] Cholecalciferol (Vitamin D3) [Vitamin D3] 5,000 unit PO DAILY 11/30/17 [History] Docusate Sodium [Dulcolax Stool Softener] 100 mg PO DAILY 11/30/17 [History] Lactobacillus Acidophilus [Acidophilus Probiotic] 1 mg PO DAILY 11/30/17 [History] Magnesium Oxide [Magnesium] 250 mg PO DAILY 11/30/17 [History] Metoprolol Succinate 75 mg PO DAILY 11/30/17 [History] Enoxaparin [Lovenox *PHARMACY WT BASED*] 100 mg SQ Q12HR #60 syringe 02/07/18 [Rx] Ferrous Sulfate [Iron] 325 mg PO DAILY 02/20/18 [History] Formula Tablet 03/21/18 [History] Allergy/AdvReac Type Severity Reaction Status Date / Time Penicillins Allergy See Verified 03/21/18 06:07 Comments sulfamethoxazole Allergy Rash Verified 03/21/18 06:07 [From Bactrim] trimethoprim [From Bactrim] Allergy Rash Verified 03/21/18 06:07 Hospitalist - CN: Exam - Constitutional Vitals: Temp Pulse Resp BP Pulse Ox 98.8 F 100 18 132/84 97 03/22/18 17:00 03/22/18 17:00 03/22/18 17:00 03/22/18 17:00 03/22/18 17:00 General appearance IM: Present: A&O X 3, no acute distress, answers questions appropriately Exam: xx Internal Medicine - CN: Reslt - Labs CBC & Chem 7: 03/22/18 21:20 03/21/18 06:25 Labs: Short CBC 03/22/18 Range/Units 12:14 WBC 24.4 H D (4.3-11.1) K/mcL Hgb 12.6 (11.5-15.4) g/dL Hct 38.0 (35.3-44.9) % Plt Count 315 (140-400) K/mcL Neutrophils # 21.0 H (1.6-8.9) K/mcL - ABG Interpretation ABG results: PT/INR, D-dimer PT 11.5 Seconds (9.4-12.1) 03/22/18 12:14 D-Dimer 5493 ng/mLFEU (0-500) H 03/22/18 18:14 - Impressions Impressions Chest X-Ray 03/22/18 16:31 IMPRESSION: No acute cardiopulmonary disease. D/ / Cesar Dent MD / Cesar Dent MD Interpreting Provider: Cesar Dent MD Consult Discharge Plan - Plan Referrals: Tere Bautista DO [Primary Care Provider] -
[2018-03-22] MEDS: Ibuprofen 600 MG TABLET PO PRN (20:37)
[2018-03-22 21:34] LABS: Immature Granulocytes % 0.8 % (0-4)
[2018-03-22 21:36] LABS: Basophils # 0.1 K/mcL (0.0-0.2); Basophils % 0.2 %; Hematocrit 26.8 % (35.3-44.9); Lymphocytes # 3.6 K/mcL (0.6-4.6); Lymphocytes % 12.6 %; Mean Corpuscular HGB Conc 33.6 g/dL (31.6-35.5); Mean Corpuscular Volume 92.4 fL (83.0-100.0); Mean Platelet Volume 9.6 fL (9.4-12.4); Monocytes # 1.8 K/mcL (0.0-1.3); Monocytes % 6.2 %; Neutrophils # 22.7 K/mcL (1.6-8.9); Platelet Count 219 K/mcL (140-400); Red Cell Distribution Width 13.6 % (11.5-14.5); Segmented Neutrophils % 80.2 %
[2018-03-22 21:57] LABS: Platelet Estimate Normal (Normal)
[2018-03-23] MEDS ORDERED: *HR* Enoxaparin 120 MG/0.8 ML SYRINGE SQ SCH
[2018-03-23] MEDS: Ibuprofen 600 MG TABLET PO PRN ×3 (04:25→18:53)
[2018-03-23 06:00] LABS: Basophils # 0.1 K/mcL (0.0-0.2); Basophils % 0.3 %; Eosinophils # 0.1 K/mcL (0.0-0.6); Eosinophils % 0.6 %; Hematocrit 26.4 % (35.3-44.9); Hemoglobin 8.7 g/dL (11.5-15.4); Immature Granulocytes % 1.1 % (0-4); Lymphocytes # 3.9 K/mcL (0.6-4.6); Lymphocytes % 17.8 %; Mean Corpuscular Hemoglobin 30.7 pg (28.0-33.3); Mean Corpuscular Volume 93.3 fL (83.0-100.0); Mean Platelet Volume 9.6 fL (9.4-12.4); Monocytes # 1.4 K/mcL (0.0-1.3); Monocytes % 6.5 %; Neutrophils # 16.1 K/mcL (1.6-8.9); Platelet Count 183 K/mcL (140-400); Red Blood Count 2.83 M/mcL (3.82-4.97); Red Cell Distribution Width 13.9 % (11.5-14.5); Segmented Neutrophils % 73.7 %
[2018-03-23] MEDS: Prenatal Vit/FA 1 EACH TABLET PO SCH (09:06)
[2018-03-23] MEDS: Cholecalciferol (D-3) 1,000 UNIT TABLET PO SCH (09:06)
[2018-03-23] MEDS: Loratadine 10 MG TABLET PO SCH (09:06)
--- NOTE | 2018-03-23 09:29 | OB/GYN Progress Note ---
Date of Encounter: 03/23/18 Time of Encounter: 09:27 - Assessment and Plan (1) Chronic hypertension affecting Current Visit: No Status: Acute Metropolol restarted by hospitalist (2) Iliac vein thrombosis Current Visit: No Status: Acute Plan to restart lovenox later today or tomorrow after hospitalist discusses POC with [employer]. Qualifiers: Laterality: left Qualified Code(s): I82.422 - Acute embolism and thrombosis of left iliac vein (3) Vaginal delivery Current Visit: Yes Status: Acute Pt meeting PPD1 milestones. Continue to work on . Anticipate discharge home PPD#2. (4) Patient is a currently breast-feeding mother Current Visit: Yes Status: Acute Subjective - Subjective Interval history: Pt reports she is still very tired but otherwise feeling better this am. She has not had any additional bloody sputum. She had a negative venous doppler last evening. She reports lochia is normal. She continues to work on . Her perineal pain is controlled with Motrin. Patient reports: appetite normal, voiding normally, pain well controlled, ambulating normally [place]: doing well Objective - Latest Vital Signs Latest vital signs: Vital Signs Temp Pulse Resp BP Pulse Ox 03/23/18 08:30 97.9 F 89 16 128/76 96 03/23/18 04:00 97.6 F 97 18 127/93 98 03/22/18 20:30 98 F 105 18 130/81 97 03/22/18 17:00 98.8 F 100 18 132/84 97 03/22/18 16:00 98.8 F 94 18 109/63 97 Intake and Output 03/22/18 03/23/18 03/23/18 23:59 07:59 15:59 Intake Total 1000 / 1000 100 / 100 Output Total 1400 / 1400 250 / 250 Balance -400 / -400 -150 / -150 Intake: IV Fluids 100 / 100 100 / 100 Ancef 2,000 MG In 0.9 % Sodium 100 / 100 100 / 100 Chloride 100 ML @ 200 mls/hr IVPB Q8HR [facility] Rx#:[id number] Oral 900 / 900 Output: Urine 150 / 150 250 / 250 Catheter 1250 / 1250 Other: Stool Size Small Weight 103.873 kg Patient Weight 03/23/18 23:59 Weight 103.873 kg - Exam Lungs: bilateral: normal Chest: Normal S1, Normal S2 Extremities: Present: edema (2+ bilaterally, no erythema or warmth) Abdomen: Present: soft Uterus: Present: firm - Labs Labs: Laboratory Results - last 24 hr 03/21/18 03/22/18 03/22/18 06:25 12:14 12:14 WBC 24.4 H D RBC 4.11 Hgb 12.6 Hct 38.0 MCV 92.5 MCH 30.7 MCHC 33.2 RDW 13.7 Plt Count 315 MPV 9.7 Immature Gran % 1.0 Seg Neutrophils % 85.9 Lymphocytes % 6.8 Monocytes % 6.1 Eosinophils % 0.0 Basophils % 0.2 Neutrophils # 21.0 H Lymphocytes # 1.7 Monocytes # 1.5 H Eosinophils # 0.0 Basophils # 0.1 Platelet Estimate PT 11.5 INR 1.0 APTT 27.6 Fibrinogen 670 H D-Dimer Blood Type O POSITIVE Antibody Screen NEGATIVE Crossmatch See Detail 03/22/18 03/22/18 03/23/18 18:14 21:20 05:43 WBC 28.3 H 21.7 H RBC 2.90 L 2.83 L Hgb 9.0 L D 8.7 L Hct 26.8 L 26.4 L MCV 92.4 93.3 MCH 31.0 30.7 MCHC 33.6 33.0 RDW 13.6 13.9 Plt Count 219 183 MPV 9.6 9.6 Immature Gran % 0.8 1.1 Seg Neutrophils % 80.2 73.7 Lymphocytes % 12.6 17.8 Monocytes % 6.2 6.5 Eosinophils % 0.0 0.6 Basophils % 0.2 0.3 Neutrophils # 22.7 H 16.1 H Lymphocytes # 3.6 3.9 Monocytes # 1.8 H 1.4 H Eosinophils # 0.0 0.1 Basophils # 0.1 0.1 Platelet Estimate Normal PT INR APTT Fibrinogen D-Dimer 5493 H Blood Type Antibody Screen Crossmatch
[2018-03-23] MEDS ORDERED: Benzocaine/Menthol 56 GM AEROSOL SPRAY TP ONE (09:49)
--- NOTE | 2018-03-23 12:34 | Oncology Inp Consult Note ---
<Mirta Villalta L - Last Filed: 03/23/18 13:34> Date of Encounter: 03/23/18 Time of Encounter: 12:33 Assessment and Plan (1) May-Thurner syndrome Status: Acute Assessment and plan: Discussed ongoing need for anticoagulation for 6-8 weeks in the period secondary to patients continued high risk for thrombus She has had no significant bleeding since delivery about 24 hours ago Repeat LLE doppler is negative She had small amount of hemoptysis with coughing earlier this morning, no cough, SOB, hemoptysis since that time, chest pain/pain with inspiration Patient is Dr. Chapman recommends Lovenox at prophylactic dosing of 40 mg Q24H for 6-8 weeks This may be initiated this evening She is to monitor for any s/s of increased bleeding or s/s of DVT/PE She will follow up with Dr. Chapman in 4 weeks - Data of Consult Patient: known to practice within the last 3 years Consult date: 03/23/18 Requesting Physician: Clifton Quintana Primary Care Provider: Joyce Mercer - Consult Narrative Reason for consult: May Thurner Syndrome History of present illness: Ms. Florez is a 27 year old female known to our practice with May Thurner Syndrome. She had a venous doppler on 02/07/2018 which demonstrated an acute thrombus in the left distal iliac vein. She was started on lovenox and this was continued weight based until 2 days prior to her induction. Ms. Flroez had a vaginal delivery about 24 hours ago (around noon on 03/22/18). She had a first degree laceration which was repaired. Lochia is reported to be normal per L&D team. She had a small amount of hemoptysis once earlier this morning following coughing. She denies chest pain, SOB or pain with inspiration. She has a history of tachycardia and HTN for which she has taken metoprolol for since the age of 22. Her vital are stable, O2 sats WNL on room air. Doppler of the LLE was completed today with normal exam. Hematology has been consulted for further recommendations. Past Med Surg Social Fam HX - Past Medical History Medical history: DVT, hypertension Additional medical history: Left Iliac Vein Psychiatric history: depression - Past Surgical History Surgical History: non-contributory Additional surgical history: wisdom teeth extraction - Social History Smoking Status: Never smoker Smokeless Tobacco Status: No Alcohol use: none Drug use: none - Family History Mother Living Status: Still Living Hx Family Cardiac Disorders: No Hx Family Respiratory Disorders: No Hx Family Cancer: No Hx Family GI Disorders: No Hx Family Endocrine Disorder: No Hx Family Neuromuscular Disorders: No Hx Family Neurologic Disorders: No Hx Family HEENT Disorders: No Hx Family Autoimmune Disorders: No Medications and Allergies Cetirizine HCl [Zyrtec] 10 mg PO DAILY 11/30/17 [History] Cholecalciferol (Vitamin D3) [Vitamin D3] 5,000 unit PO DAILY 11/30/17 [History] Docusate Sodium [Dulcolax Stool Softener] 100 mg PO DAILY 11/30/17 [History] Lactobacillus Acidophilus [Acidophilus Probiotic] 1 mg PO DAILY 11/30/17 [History] Magnesium Oxide [Magnesium] 250 mg PO DAILY 11/30/17 [History] Metoprolol Succinate 75 mg PO DAILY 11/30/17 [History] Enoxaparin [Lovenox *PHARMACY WT BASED*] 100 mg SQ Q12HR #60 syringe 02/07/18 [Rx] Ferrous Sulfate [Iron] 325 mg PO DAILY 02/20/18 [History] Formula Tablet 03/21/18 [History] Allergy/AdvReac Type Severity Reaction Status Date / Time Penicillins Allergy See Verified 03/21/18 06:07 Comments sulfamethoxazole Allergy Rash Verified 03/21/18 06:07 [From Bactrim] trimethoprim [From Bactrim] Allergy Rash Verified 03/21/18 06:07 Constitutional: Present: as per HPI, fatigue. Absent: chills, fever(s), headache(s) Eyes: Absent: change in vision Nose, mouth and throat: Absent: dysphagia Cardiovascular: Absent: chest pain, dyspnea, palpitations Respiratory: Present: as per HPI Gastrointestinal: Present: as per HPI, cramping Genitourinary: Absent: dysuria Additional comments: 24 hours , pain secondary to delivery/laceration, normal lochia per OB team/Patient Musculoskeletal: Present: muscle weakness Integumentary: Present: as per HPI Neurological: Absent: focal weakness, frequent falls Psychiatric: Present: as per HPI Hematologic/Lymphatic: Present: as per HPI Oncology - Exam - Constitutional Vitals: Temp Pulse Resp BP Pulse Ox 97.9 F 89 16 128/76 96 03/23/18 08:30 03/23/18 08:30 03/23/18 08:30 03/23/18 08:30 03/23/18 08:30 General appearance: cooperative, no acute distress, no febrile - Head Head exam: Present: atraumatic - ENT ENT exam: Present: mucous membranes moist - Respiratory Respiratory exam: Present: CTAB. Absent: respiratory distress - Cardiovascular Cardiovascular exam: Present: RRR, +S1, +S2 - GI/Abdominal GI/Abdominal exam: Present: normal bowel sounds, soft. Absent: tenderness - Extremities Exam Extremities exam: Absent: calf tenderness Additional comments: BLE edema 1-2+ - Neurological Exam Neurological exam: Present: alert, oriented X3, no focal deficits, strengths equal and symetr throughout - Psychiatric Psychiatric exam: Present: normal affect, normal mood - Skin Skin exam: Present: dry, intact, normal color, warm Consult Discharge Plan - Plan Referrals: Tere Bautista DO [Primary Care Provider] - <Libby Flowers - Last Filed: 03/23/18 20:02> - Data of Consult Requesting Physician: Clifton Quintana Primary Care Provider: Joyce Mercer - Consult Narrative History of present illness: I examined this patient and my medical decision-making was reviewed with the Advanced Practice Nurse, Mirta Villalta. I agree with the documented findings, disposition and treatment plan as described Oncology - Exam - Constitutional Vitals: Temp Pulse Resp BP Pulse Ox 97.9 F 89 16 128/76 96 03/23/18 08:30 03/23/18 08:30 03/23/18 08:30 03/23/18 08:30 03/23/18 08:30 Oncology - Results Labs: 03/23/18 03/22/18 03/22/18 05:43 21:20 18:14 WBC 21.7 H 28.3 H RBC 2.83 L 2.90 L Hgb 8.7 L 9.0 L D Hct 26.4 L 26.8 L MCV 93.3 92.4 MCH 30.7 31.0 MCHC 33.0 33.6 RDW 13.9 13.6 Plt Count 183 219 MPV 9.6 9.6 Immature Gran % 1.1 0.8 Seg Neutrophils % 73.7 80.2 Lymphocytes % 17.8 12.6 Monocytes % 6.5 6.2 Eosinophils % 0.6 0.0 Basophils % 0.3 0.2 Neutrophils # 16.1 H 22.7 H Lymphocytes # 3.9 3.6 Monocytes # 1.4 H 1.8 H Eosinophils # 0.1 0.0 Basophils # 0.1 0.1 Platelet Estimate Normal PT INR APTT Fibrinogen D-Dimer 5493 H BUN Creatinine Est GFR ( Amer) Est GFR (Non-Af Amer) BUN/Creatinine Ratio Uric Acid AST ALT Lactate Dehydrogenase Urine Creatinine Protein/Creatinin Ratio Urine Total Protein Urine Opiates Screen Ur Barbiturates Screen Ur Phencyclidine Scrn Ur Amphetamines Screen U Benzodiazepines Scrn Urine Cocaine Screen U Marijuana (THC) Screen Ur Drug Screen Interp Blood Type Antibody Screen Crossmatch 03/22/18 03/22/18 03/21/18 12:14 12:14 06:25 WBC 24.4 H D RBC 4.11 Hgb 12.6 Hct 38.0 MCV 92.5 MCH 30.7 MCHC 33.2 RDW 13.7 Plt Count 315 MPV 9.7 Immature Gran % 1.0 Seg Neutrophils % 85.9 Lymphocytes % 6.8 Monocytes % 6.1 Eosinophils % 0.0 Basophils % 0.2 Neutrophils # 21.0 H Lymphocytes # 1.7 Monocytes # 1.5 H Eosinophils # 0.0 Basophils # 0.1 Platelet Estimate PT 11.5 INR 1.0 APTT 27.6 Fibrinogen 670 H D-Dimer BUN 9 Creatinine 0.52 L Est GFR ( Amer) > 60 Est GFR (Non-Af Amer) > 60 BUN/Creatinine Ratio 17 Uric Acid 5.3 AST 20 ALT 14 Lactate Dehydrogenase 154 Urine Creatinine Protein/Creatinin Ratio Urine Total Protein Urine Opiates Screen Ur Barbiturates Screen Ur Phencyclidine Scrn Ur Amphetamines Screen U Benzodiazepines Scrn Urine Cocaine Screen U Marijuana (THC) Screen Ur Drug Screen Interp Blood Type Antibody Screen Crossmatch 03/21/18 03/21/18 03/21/18 06:25 06:25 06:25 WBC RBC Hgb Hct MCV MCH MCHC RDW Plt Count MPV Immature Gran % Seg Neutrophils % Lymphocytes % Monocytes % Eosinophils % Basophils % Neutrophils # Lymphocytes # Monocytes # Eosinophils # Basophils # Platelet Estimate PT INR APTT Fibrinogen D-Dimer BUN Creatinine Est GFR ( Amer) Est GFR (Non-Af Amer) BUN/Creatinine Ratio Uric Acid AST ALT Lactate Dehydrogenase Urine Creatinine 88 Protein/Creatinin Ratio 0.18 Urine Total Protein 16 H Urine Opiates Screen Negative Ur Barbiturates Screen Negative Ur Phencyclidine Scrn Negative Ur Amphetamines Screen Negative U Benzodiazepines Scrn Negative Urine Cocaine Screen Negative U Marijuana (THC) Screen Negative Ur Drug Screen Interp See Below Blood Type O POSITIVE Antibody Screen NEGATIVE Crossmatch See Detail 03/21/18 06:25 WBC 13.5 H RBC 3.89 Hgb 12.0 Hct 35.4 MCV 91.0 MCH 30.8 MCHC 33.9 RDW 13.4 Plt Count 264 MPV 9.7 Immature Gran % 0.9 Seg Neutrophils % 65.3 Lymphocytes % 24.9 Monocytes % 7.8 Eosinophils % 0.7 Basophils % 0.4 Neutrophils # 8.8 Lymphocytes # 3.4 Monocytes # 1.1 Eosinophils # 0.1 Basophils # 0.1 Platelet Estimate PT INR APTT Fibrinogen D-Dimer BUN Creatinine Est GFR ( Amer) Est GFR (Non-Af Amer) BUN/Creatinine Ratio Uric Acid AST ALT Lactate Dehydrogenase Urine Creatinine Protein/Creatinin Ratio Urine Total Protein Urine Opiates Screen Ur Barbiturates Screen Ur Phencyclidine Scrn Ur Amphetamines Screen U Benzodiazepines Scrn Urine Cocaine Screen U Marijuana (THC) Screen Ur Drug Screen Interp Blood Type Antibody Screen Crossmatch Inpatient Charges Provider: Dr. Alka Flowers Consult - Inpatient: [id number]
[2018-03-23] MEDS ORDERED: *HR* Enoxaparin 40 MG/0.4 ML SYRINGE SQ SCH ×2 (18:00→22:30)
--- NOTE | 2018-03-23 19:46 | Oncology Inp Consult Note ---
Date of Encounter: 03/23/18 Time of Encounter: 12:00 - Data of Consult Requesting Physician: Clifton Quintana Primary Care Provider: Joyce Mercer - Consult Narrative Reason for consult: dvt History of present illness: Please refer to Mirta Villalta's dictattion from 03/23/18. I examined this patient and my medical decision-making was reviewed with the Advanced Practice Nurse, Mirta Villalta. I agree with the documented findings, disposition and treatment plan as described except to the extent set forth below. Rpr venous doppler was negative. She has had normal vaginal delivery 03/22/18. With hx od recent DVT, in the setting , recommended lovenox 40mg daily dose through for 6-8wks. She has taken therapeutic lovenox previously. She will RTC in 6 wks or so to f/u in clinic. Past Med Surg Social Fam HX - Past Medical History Medical history: DVT, hypertension Additional medical history: Left Iliac Vein Psychiatric history: depression - Past Surgical History Surgical History: non-contributory Additional surgical history: wisdom teeth extraction - Social History Smoking Status: Never smoker Smokeless Tobacco Status: No Alcohol use: none Drug use: none - Family History Mother Living Status: Still Living Hx Family Cardiac Disorders: No Hx Family Respiratory Disorders: No Hx Family Cancer: No Hx Family GI Disorders: No Hx Family Endocrine Disorder: No Hx Family Neuromuscular Disorders: No Hx Family Neurologic Disorders: No Hx Family HEENT Disorders: No Hx Family Autoimmune Disorders: No Medications and Allergies Cetirizine HCl [Zyrtec] 10 mg PO DAILY 11/30/17 [History] Cholecalciferol (Vitamin D3) [Vitamin D3] 5,000 unit PO DAILY 11/30/17 [History] Docusate Sodium [Dulcolax Stool Softener] 100 mg PO DAILY 11/30/17 [History] Lactobacillus Acidophilus [Acidophilus Probiotic] 1 mg PO DAILY 11/30/17 [History] Magnesium Oxide [Magnesium] 250 mg PO DAILY 11/30/17 [History] Metoprolol Succinate 75 mg PO DAILY 11/30/17 [History] Enoxaparin [Lovenox *PHARMACY WT BASED*] 100 mg SQ Q12HR #60 syringe 02/07/18 [Rx] Ferrous Sulfate [Iron] 325 mg PO DAILY 02/20/18 [History] Formula Tablet 03/21/18 [History] Allergy/AdvReac Type Severity Reaction Status Date / Time Penicillins Allergy See Verified 03/21/18 06:07 Comments sulfamethoxazole Allergy Rash Verified 03/21/18 06:07 [From Bactrim] trimethoprim [From Bactrim] Allergy Rash Verified 03/21/18 06:07 Oncology - Exam - Constitutional Vitals: Temp Pulse Resp BP Pulse Ox 97.9 F 89 16 128/76 96 03/23/18 08:30 03/23/18 08:30 03/23/18 08:30 03/23/18 08:30 03/23/18 08:30 Oncology - Results Labs: 03/23/18 03/22/18 03/22/18 05:43 21:20 18:14 WBC 21.7 H 28.3 H RBC 2.83 L 2.90 L Hgb 8.7 L 9.0 L D Hct 26.4 L 26.8 L MCV 93.3 92.4 MCH 30.7 31.0 MCHC 33.0 33.6 RDW 13.9 13.6 Plt Count 183 219 MPV 9.6 9.6 Immature Gran % 1.1 0.8 Seg Neutrophils % 73.7 80.2 Lymphocytes % 17.8 12.6 Monocytes % 6.5 6.2 Eosinophils % 0.6 0.0 Basophils % 0.3 0.2 Neutrophils # 16.1 H 22.7 H Lymphocytes # 3.9 3.6 Monocytes # 1.4 H 1.8 H Eosinophils # 0.1 0.0 Basophils # 0.1 0.1 Platelet Estimate Normal PT INR APTT Fibrinogen D-Dimer 5493 H BUN Creatinine Est GFR ( Amer) Est GFR (Non-Af Amer) BUN/Creatinine Ratio Uric Acid AST ALT Lactate Dehydrogenase Urine Creatinine Protein/Creatinin Ratio Urine Total Protein Urine Opiates Screen Ur Barbiturates Screen Ur Phencyclidine Scrn Ur Amphetamines Screen U Benzodiazepines Scrn Urine Cocaine Screen U Marijuana (THC) Screen Ur Drug Screen Interp Blood Type Antibody Screen Crossmatch 03/22/18 03/22/18 03/21/18 12:14 12:14 06:25 WBC 24.4 H D RBC 4.11 Hgb 12.6 Hct 38.0 MCV 92.5 MCH 30.7 MCHC 33.2 RDW 13.7 Plt Count 315 MPV 9.7 Immature Gran % 1.0 Seg Neutrophils % 85.9 Lymphocytes % 6.8 Monocytes % 6.1 Eosinophils % 0.0 Basophils % 0.2 Neutrophils # 21.0 H Lymphocytes # 1.7 Monocytes # 1.5 H Eosinophils # 0.0 Basophils # 0.1 Platelet Estimate PT 11.5 INR 1.0 APTT 27.6 Fibrinogen 670 H D-Dimer BUN 9 Creatinine 0.52 L Est GFR ( Amer) > 60 Est GFR (Non-Af Amer) > 60 BUN/Creatinine Ratio 17 Uric Acid 5.3 AST 20 ALT 14 Lactate Dehydrogenase 154 Urine Creatinine Protein/Creatinin Ratio Urine Total Protein Urine Opiates Screen Ur Barbiturates Screen Ur Phencyclidine Scrn Ur Amphetamines Screen U Benzodiazepines Scrn Urine Cocaine Screen U Marijuana (THC) Screen Ur Drug Screen Interp Blood Type Antibody Screen Crossmatch 03/21/18 03/21/18 03/21/18 06:25 06:25 06:25 WBC RBC Hgb Hct MCV MCH MCHC RDW Plt Count MPV Immature Gran % Seg Neutrophils % Lymphocytes % Monocytes % Eosinophils % Basophils % Neutrophils # Lymphocytes # Monocytes # Eosinophils # Basophils # Platelet Estimate PT INR APTT Fibrinogen D-Dimer BUN Creatinine Est GFR ( Amer) Est GFR (Non-Af Amer) BUN/Creatinine Ratio Uric Acid AST ALT Lactate Dehydrogenase Urine Creatinine 88 Protein/Creatinin Ratio 0.18 Urine Total Protein 16 H Urine Opiates Screen Negative Ur Barbiturates Screen Negative Ur Phencyclidine Scrn Negative Ur Amphetamines Screen Negative U Benzodiazepines Scrn Negative Urine Cocaine Screen Negative U Marijuana (THC) Screen Negative Ur Drug Screen Interp See Below Blood Type O POSITIVE Antibody Screen NEGATIVE Crossmatch See Detail 03/21/18 06:25 WBC 13.5 H RBC 3.89 Hgb 12.0 Hct 35.4 MCV 91.0 MCH 30.8 MCHC 33.9 RDW 13.4 Plt Count 264 MPV 9.7 Immature Gran % 0.9 Seg Neutrophils % 65.3 Lymphocytes % 24.9 Monocytes % 7.8 Eosinophils % 0.7 Basophils % 0.4 Neutrophils # 8.8 Lymphocytes # 3.4 Monocytes # 1.1 Eosinophils # 0.1 Basophils # 0.1 Platelet Estimate PT INR APTT Fibrinogen D-Dimer BUN Creatinine Est GFR ( Amer) Est GFR (Non-Af Amer) BUN/Creatinine Ratio Uric Acid AST ALT Lactate Dehydrogenase Urine Creatinine Protein/Creatinin Ratio Urine Total Protein Urine Opiates Screen Ur Barbiturates Screen Ur Phencyclidine Scrn Ur Amphetamines Screen U Benzodiazepines Scrn Urine Cocaine Screen U Marijuana (THC) Screen Ur Drug Screen Interp Blood Type Antibody Screen Crossmatch Consult Discharge Plan - Plan Referrals: Tere Bautista DO [Primary Care Provider] - Inpatient Charges Provider: Dr. Alka Flowers Consult - Inpatient: [id number]
--- NOTE | 2018-03-23 20:49 | Internal Med Progress Note ---
Hospitalist Progress Note - Encounter Date of Encounter: 03/23/18 Time of Encounter: 11:30 - Subjective Interval History: SUBJECTIVE: The patient feels good. She did not have any more episodes of coughing/hemoptysis after the first and only one she experienced yesterday. Denies chest pain. Denies abdominal pain, nausea and vomiting. She has normal urination. She denies pain in legs. OBJECTIVE: Skin: Free of rash and discoloration. ENMT: Oral/pharyngeal mucosa is normal in appearance. Eyes: Sclera is white. There is no discharge from eyes. Respiratory: Normal breath sounds; no crackles or wheezes. CV: Heart is regular; no gallop or murmur. GI: Abdomen is soft and not tender. There is no palpable mass or visceromegaly. Neuro: There is no focal deficits. ADDITIONAL DATA: Hemoglobin is 8.7; 9.0 yesterday. WBC is 21.7 thousand; 28.3 thousand yesterday. She has normal platelet count. ASSESSMENT AND PLAN: One episode of mild hemoptysis was observed yesterday. There is no evidence for pulmonary embolism. Repeated duplex of lower extremities done yesterday showed normal findings. The patient was diagnosed with a DVT in left leg on 02/07/18. Hematology is consulted. They recommend the Lovenox at 40 mg subcutaneously daily for the next 6-8 weeks. Hypertension. She used to take metoprolol at home. There is no need for antihy pertensives at this time. I am signing off. Please call me, if my help is needed. - Exam Vitals: Temp Pulse Resp BP Pulse Ox 97.9 F 89 16 128/76 96 03/23/18 08:30 03/23/18 08:30 03/23/18 08:30 03/23/18 08:30 03/23/18 08:30 Exam: xx - Assessment and Plan (1) Hemoptysis Current Visit: Yes Status: Acute (2) Iliac vein thrombosis Current Visit: No Status: Acute (3) HTN (hypertension) Current Visit: Yes Status: Acute - Time Spent with Patient Total time spent is greater than 50% in coordination of care (as documented) at patient's floor/unit and/or counseling patient: 25 - 35 minutes Plan of Care Discussed with: patient (and family..) Internal Medicine: Result - Labs CBC & Chem 7: 03/23/18 05:43 03/21/18 06:25 Labs: Short CBC 03/22/18 03/23/18 Range/Units 21:20 05:43 WBC 28.3 H 21.7 H (4.3-11.1) K/mcL Hgb 9.0 L D 8.7 L (11.5-15.4) g/dL Hct 26.8 L 26.4 L (35.3-44.9) % Plt Count 219 183 (140-400) K/mcL Neutrophils # 22.7 H 16.1 H (1.6-8.9) K/mcL - ABG Interpretation ABG results: PT/INR, D-dimer PT 11.5 Seconds (9.4-12.1) 03/22/18 12:14 D-Dimer 5493 ng/mLFEU (0-500) H 03/22/18 18:14 Consult Discharge Plan - Plan Referrals: Tere Bautista DO [Primary Care Provider] - (2) Iliac vein thrombosis Qualifiers: Laterality: left Qualified Code(s): I82.422 - Acute embolism and thrombosis of left iliac vein (3) HTN (hypertension) Qualifiers: Hypertension type: essential hypertension Qualified Code(s): I10 - Essential (primary) hypertension
[2018-03-24] MEDS: Ibuprofen 600 MG TABLET PO PRN ×2 (01:11→07:03)
[2018-03-24] MEDS: Loratadine 10 MG TABLET PO SCH (07:55)
[2018-03-24] MEDS: Prenatal Vit/FA 1 EACH TABLET PO SCH (07:56)
[2018-03-24] MEDS: Cholecalciferol (D-3) 1,000 UNIT TABLET PO SCH (07:56)
[2018-03-24 08:31] VITALS: BP 147/94
--- NOTE | 2018-03-24 09:45 | Discharge Summary ---
Date of Encounter: 03/24/18 Time of Encounter: 09:42 - Discharge Diagnosis (1) Status post vaginal delivery Priority: Primary Status: Acute Comments: Patient is meeting milestones for day 2 post vaginal delivery. He is well-controlled with Motrin and Tylenol. Anticipate discharge home today. (2) anemia Priority: Secondary Status: Acute Comments: Patient is asymptomatic with a hemoglobin of 8.7. Discharge home with prescription of iron daily. (3) First degree perineal laceration during delivery Priority: Secondary Status: Acute Comments: Patient is using the Dermoplast as needed. Patient also has a sitz bath and was informed on its use (4) Iliac vein thrombosis Priority: Secondary Status: Acute Comments: Maren was seen by hematology during this hospitalization. She is to follow-up with them in 4 weeks. Continue Lovenox 40 mg daily for 6-8 weeks as recommended by hematology. Qualifiers: Laterality: left Qualified Code(s): I82.422 - Acute embolism and thrombosis of left iliac vein (5) Chronic hypertension affecting Priority: Secondary Status: Acute Comments: Blood pressures have remained in the normal range during this hospitalization. She is to restart metoprolol 75 mg as previously prescribed prior to per Dr. Velez's recommendation. Maren states she has a home blood pressure monitoring device. Dr. Mariano he would like Maren to follow-up in the office in 1 week for blood pressure check. Patient states she would cancel that appointment and she feels it is unnecessary when she can check her blood pressures at home. (6) May-Thurner syndrome Priority: Secondary Status: Acute Comments: Follow-up with hematology in 4 weeks as recommended. Continue Lovenox as recommended by hematology. (7) Patient is a currently breast-feeding mother Priority: Secondary Status: Acute Comments: support as needed. Patient states she has a breast pump at home and is not in need of a prescription today. - Discharge Medications Prescriptions: Ibuprofen [Motrin] 600 mg PO Q6HR PRN #60 tablet PRN Reason: Analgesia Enoxaparin [Lovenox] 40 mg SQ 1800 #30 syringe Ferrous Sulfate [Iron] 325 mg PO DAILY #30 tablet Home Medications: Cetirizine HCl [Zyrtec] 10 mg PO DAILY 11/30/17 [History] Cholecalciferol (Vitamin D3) [Vitamin D3] 5,000 unit PO DAILY 11/30/17 [History] Docusate Sodium [Dulcolax Stool Softener] 100 mg PO DAILY 11/30/17 [History] Lactobacillus Acidophilus [Acidophilus Probiotic] 1 mg PO DAILY 11/30/17 [History] Magnesium Oxide [Magnesium] 250 mg PO DAILY 11/30/17 [History] Metoprolol Succinate 75 mg PO DAILY 11/30/17 [History] Formula Tablet 03/21/18 [History] Acetaminophen [Tylenol] 650 mg PO Q6HR PRN tablet 03/24/18 [Rx] Enoxaparin [Lovenox] 40 mg SQ 1800 #30 syringe 03/24/18 [Rx] Ferrous Sulfate [Iron] 325 mg PO DAILY #30 tablet 03/24/18 [Rx] Ibuprofen [Motrin] 600 mg PO Q6HR PRN #60 tablet 03/24/18 [Rx] Allergies/Adverse Reactions: Allergy/AdvReac Type Severity Reaction Status Date / Time Penicillins Allergy See Verified 03/21/18 06:07 Comments sulfamethoxazole Allergy Rash Verified 03/21/18 06:07 [From Bactrim] trimethoprim [From Bactrim] Allergy Rash Verified 03/21/18 06:07 Data Procedures and tests throughout hospitalization: Laboratory Tests 03/21/18 03/21/18 03/21/18 06:25 06:25 06:25 WBC 13.5 H RBC 3.89 Hgb 12.0 Hct 35.4 MCV 91.0 MCH 30.8 MCHC 33.9 RDW 13.4 Plt Count 264 MPV 9.7 Immature Gran % 0.9 Seg Neutrophils % 65.3 Lymphocytes % 24.9 Monocytes % 7.8 Eosinophils % 0.7 Basophils % 0.4 Neutrophils # 8.8 Lymphocytes # 3.4 Monocytes # 1.1 Eosinophils # 0.1 Basophils # 0.1 Platelet Estimate PT INR APTT Fibrinogen D-Dimer BUN Creatinine Est GFR ( Amer) Est GFR (Non-Af Amer) BUN/Creatinine Ratio Uric Acid AST ALT Lactate Dehydrogenase Urine Creatinine Protein/Creatinin Ratio Urine Total Protein Urine Opiates Screen Negative Ur Barbiturates Screen Negative Ur Phencyclidine Scrn Negative Ur Amphetamines Screen Negative U Benzodiazepines Scrn Negative Urine Cocaine Screen Negative U Marijuana (THC) Screen Negative Ur Drug Screen Interp See Below Blood Type O POSITIVE Antibody Screen NEGATIVE Crossmatch See Detail 03/21/18 03/21/18 03/22/18 06:25 06:25 12:14 WBC 24.4 H D RBC 4.11 Hgb 12.6 Hct 38.0 MCV 92.5 MCH 30.7 MCHC 33.2 RDW 13.7 Plt Count 315 MPV 9.7 Immature Gran % 1.0 Seg Neutrophils % 85.9 Lymphocytes % 6.8 Monocytes % 6.1 Eosinophils % 0.0 Basophils % 0.2 Neutrophils # 21.0 H Lymphocytes # 1.7 Monocytes # 1.5 H Eosinophils # 0.0 Basophils # 0.1 Platelet Estimate PT INR APTT Fibrinogen D-Dimer BUN 9 Creatinine 0.52 L Est GFR ( Amer) > 60 Est GFR (Non-Af Amer) > 60 BUN/Creatinine Ratio 17 Uric Acid 5.3 AST 20 ALT 14 Lactate Dehydrogenase 154 Urine Creatinine 88 Protein/Creatinin Ratio 0.18 Urine Total Protein 16 H Urine Opiates Screen Ur Barbiturates Screen Ur Phencyclidine Scrn Ur Amphetamines Screen U Benzodiazepines Scrn Urine Cocaine Screen U Marijuana (THC) Screen Ur Drug Screen Inter Blood Type Antibody Screen Crossmatch 03/22/18 03/22/18 03/22/18 12:14 18:14 21:20 WBC 28.3 H RBC 2.90 L Hgb 9.0 L D Hct 26.8 L MCV 92.4 MCH 31.0 MCHC 33.6 RDW 13.6 Plt Count 219 MPV 9.6 Immature Gran % 0.8 Seg Neutrophils % 80.2 Lymphocytes % 12.6 Monocytes % 6.2 Eosinophils % 0.0 Basophils % 0.2 Neutrophils # 22.7 H Lymphocytes # 3.6 Monocytes # 1.8 H Eosinophils # 0.0 Basophils # 0.1 Platelet Estimate Normal PT 11.5 INR 1.0 APTT 27.6 Fibrinogen 670 H D-Dimer 5493 H BUN Creatinine Est GFR ( Amer) Est GFR (Non-Af Amer) BUN/Creatinine Ratio Uric Acid AST ALT Lactate Dehydrogenase Urine Creatinine Protein/Creatinin Ratio Urine Total Protein Urine Opiates Screen Ur Barbiturates Screen Ur Phencyclidine Scrn Ur Amphetamines Screen U Benzodiazepines Scrn Urine Cocaine Screen U Marijuana (THC) Screen Ur Drug Screen Inter Blood Type Antibody Screen Crossmatch 03/23/18 05:43 WBC 21.7 H RBC 2.83 L Hgb 8.7 L Hct 26.4 L MCV 93.3 MCH 30.7 MCHC 33.0 RDW 13.9 Plt Count 183 MPV 9.6 Immature Gran % 1.1 Seg Neutrophils % 73.7 Lymphocytes % 17.8 Monocytes % 6.5 Eosinophils % 0.6 Basophils % 0.3 Neutrophils # 16.1 H Lymphocytes # 3.9 Monocytes # 1.4 H Eosinophils # 0.1 Basophils # 0.1 Platelet Estimate PT INR APTT Fibrinogen D-Dimer BUN Creatinine Est GFR ( Amer) Est GFR (Non-Af Amer) BUN/Creatinine Ratio Uric Acid AST ALT Lactate Dehydrogenase Urine Creatinine Protein/Creatinin Ratio Urine Total Protein Urine Opiates Screen Ur Barbiturates Screen Ur Phencyclidine Scrn Ur Amphetamines Screen U Benzodiazepines Scrn Urine Cocaine Screen U Marijuana (THC) Screen Ur Drug Screen Interp Blood Type Antibody Screen Crossmatch - Impressions ITS Impressions Chest X-Ray 03/22/18 16:31 IMPRESSION: No acute cardiopulmonary disease. D/ / Cesar Dent MD / Cesar Dent MD Interpreting Provider: Cesar Dent MD Date of admission: 03/21/18 05:19 Primary care physician: Joyce Mercer Consults: 03/22/18 15:49 Consult to Hospitalist [CONS] Stat Consulting Provider: Justin Whitman Reason for Consult: Hemoptysis Time Notified: 15:50 Call Completed: Yes 03/22/18 18:49 Consult to Footwear Machinery Instructor [CONS] Routine Comment: Vaginal delivery, consult needed 03/23/18 09:03 Consult to Oncology Hematology [CONS] Routine Consulting Provider: Mirta Villalta Reason for Consult: DVT of L leg; post-.. Time Notified: 09:00 Call Completed: Yes Discharging clinician: Ronel Hughes Anticipated date of discharge: 03/24/18 - Patient Status Disposition: Home, Self-Care Condition: Good Functional capacity at discharge: independent ambulation Overall status at discharge: patient is progressing back to baseline - Discharge Instructions Follow Up With: Tere Bautista DO [Primary Care Provider] - Libby Flowers MD [Partnered Physician] - Nguyen Hood CNM [Non-Partnered Physician] - Additional Instructions: Follow up with hematology in 4 weeks. - Diet and Activity Activity: resume usual activities as tolerated Diet: regular diet Hospital Course Reason for admission: induction of labor Delivery: Episiotomy: none Laceration: 1st degree Other procedures: other (PPH, hx of DVT with , see physician notes.) complications: perineal laceration, other (PPH) Discharge diagnosis: IUP at term delivered [place] baby: male Hospital course: Patient was initially admitted for induction of labor per [facility] recommendation. She is currently day 2 post vaginal delivery with a first-degree perineal laceration. She is feeling well and would like to be discharged home today. She reports adequate pain control with Motrin and Tylenol. We discussed her chronic hypertension and she is instructed to continue on her metoprolol as previously prescribed and this plan was discussed with Dr. Velez. She is also to continue 40 mg of Lovenox daily for 6-8 weeks as advised by hematology. Patient will be discharged home on iron daily with a hemoglobin of 8.7. She is currently breast-feeding states she has breast pump at home. She is tolerating regular diet, voiding normally, denies other complaints at this time. Plan is to discharge home today and follow-up with nurse doctor chiropractic in the office in 4 weeks. She is also to schedule an appointment with hematology in 4 weeks. Delivery - Delivery Date: 03/22/18 Provider: Nguyen Hood Intrapartum events: prolonged labor- > = 20hr Delivery induction: AROM, terry Delivery augmentation: pitocin Delivery monitor: internal FHT, internal uterine Anesthesia: epidural Quantitated Blood Loss: 1,000 - Infant (s) Infant A Infant Delivery Date: 03/22/18 Infant Delivery Time: 11:59 Presentation: vertex Position: OA Route of delivery: Gender: Male Viability: Viable Pounds: 7 Ounces: 14 Weight Gram: 3.585 kg at 1 minute: 6 at 5 mins: 9 Shoulder Dystocia: encountered Shoulder Dystocia Maneuvers: Rip maneuver, Huang Screw maneuver Specimens collected: cord blood, venous cord gases, arterial cord gases Placenta: spontaneous Cord: nuchal cord, 3 umbilical vessels, nuchal reduced - Repair Episiotomy: none Laceration Description: Perineal - 1st Degree - Complications Delivery complications: hemorrhage, uterine atony Delivery comments: Pt presented for IOL per [facility] recommendation. She underwent terry and AROM and then received pitocin augmentation. She received an epidural for pain control. She then progressed slowly to . At delivery of the head a loose nuchal was easily reduced. A turtle sign was then noted and shoulder dystocia was immediately recognized. At this time we called for help. Delivery of the posterior arm was attempted but unsuccessful. Rotational maneuvers were then employed. The infant was in ANDREW position. Gentle pressure was applied to the posterior shoulder to rotate the baby to direct OA position. The shoulders then followed with maternal effort only. Total dystocia time <1 minute. No traction was placed on head at any time. Dr. Anderson arrived at the time of delivery. At this time the cord was milked and cut and the placenta delivered spontaneous and intact. Brisk lochia was immediately noted. At this time the IV access with pitocin was found to be out. Cytotec 1000mcg rectal and 10units pitocin IM were given while bimanual compression was held. Brisk lochia continued. EBL at this time was 700ml. A new IV was placed and labs were drawn. Tachycardia to the 140's was noted at this time. BP stable. IV fluids started for bolus. Dr. Anderson assessed pt at this time and performed bimanual exam. Fundus began to firm and lochia became bunch breaker. EBL 1000ml total. A first degree laceration was repaired with 2-0 monocryl. Following procedure pt is infant and reports feeling tired but otherwise well. The infant was 7lbs 14oz with apgars 6 at one minute and 9 at five minutes. Maternal hgb 12.6 with CBC drawn during procedure. Will hold transfusion at this time. Entire plan was discussed throughout pro cedure with Dr. Anderson who was in attendance. Plan to restart lovenox on 03/24 per [facility] recommendations. - Disposition Mom disposition: stable in LDR [place] disposition: stable in LDR History of Present Illness Chief complaint: IOL HPI: Ms. Florez is a 27 year old female presenting at 38 weeks 2 days for scheduled IOL. Pt scheduled for IOL per [facility] due to her therapeutic lovenox. Pt diagnosed with DVT in left distal illiac vein during this . Her lovenox is being managed by her merchant patroller. She has seen MFM x2 and they recommended stopping lovenox 2 days prior to IOL at 38 weeks gestation. This is also complicated by chronic hypertension and obesity. O positive Rubella and varicella immune Serologies negative GBS negative PIH labs WNL. Time Attestation: Total time spent providing and/or coordinating discharge services: Time Spent: Less than 30 minutes Exam - Constitutional Vitals: Temp Pulse Resp BP Pulse Ox 98.2 F 75 16 147/94 98 03/24/18 07:50 03/24/18 07:50 03/24/18 08:03 03/24/18 07:50 03/24/18 07:50 General appearance IM: A&O X 3, pleasant, no acute distress, answers questions appropriately - Respiratory Respiratory exam: Present: CTAB - Cardiovascular Cardiovascular exam IM: Present: RRR, +S1, +S2 - GI/Abdominal GI/Abdominal exam IM: normal bowel sounds, soft Incision: normal - Rectal Rectal exam: deferred - Uterine Tone: Firm Uterus Position: 1 Finger Below Umbilicus - Extremities Exam Extremities exam IM: Present: full ROM, normal capillary refill, normal inspection, pedal edema, warm - Neurological Exam Neurological exam: alert, normal gait, oriented X3
== END 2018-03-24 13:15 | disposition home or self-care (01) | DRG 806 ==
LOC: 1NENULAB 05:19 → 1NENUOBS 03-22 15:28
PROVIDERS: ADMIT Registered Nurse; ATTEND Registered Nurse

== ENCOUNTER 2020-11-02 04:00 | Inpatient (IN) ==
[2020-11-02] MEDS: Ringers Solution, Lactated 1,000 ML IVC SCH ×2 (01:40→16:58)
[2020-11-02] MEDS ORDERED: Naloxone 0.4 MG/ML INJ IVP PRN (04:39)
[2020-11-02] MEDS ORDERED: Famotidine 20 MG/2 ML VIAL IVP PRN (04:39)
[2020-11-02] MEDS ORDERED: Lidocaine 1% 20 ML MDV INFILT PRN (04:39)
[2020-11-02] MEDS ORDERED: *HR* Nalbuphine 10 MG/ML AMPUL IV PRN (04:39)
[2020-11-02] MEDS ORDERED: Metoclopramide 10 MG/2 ML VIAL IVP PRN (04:39)
[2020-11-02] MEDS ORDERED: Ondansetron 4 MG/2 ML VIAL IVP PRN (04:39)
[2020-11-02] MEDS ORDERED: Azithromycin 500 MG in 0.9 % Sodium Chloride 250 ML IVPB ONE (04:39)
[2020-11-02 05:13] LABS: Basophils % 0.3 %; Eosinophils # 0.2 K/mcL (0.0-0.6); Eosinophils % 1.8 %; Hematocrit 33.6 % (35.3-44.9); Immature Granulocytes % 0.7 % (0-4); Lymphocytes # 2.9 K/mcL (0.6-4.6); Lymphocytes % 23.3 %; Mean Corpuscular HGB Conc 32.7 g/dL (31.6-35.5); Mean Corpuscular Hemoglobin 30.6 pg (28.0-33.3); Mean Corpuscular Volume 93.3 fL (83.0-100.0); Mean Platelet Volume 9.9 fL (9.4-12.4); Monocytes % 8.3 %; Neutrophils # 8.2 K/mcL (1.6-8.9); Platelet Count 248 K/mcL (140-400); Red Cell Distribution Width 13.8 % (11.5-14.5); Segmented Neutrophils % 65.6 %; White Blood Count 12.5 K/mcL (4.3-11.1)
[2020-11-02 05:20] LABS: Amphetamine Screen,Urine Negative ng/mL (Cutoff=1000); Barbiturate Screen,Urine Negative ng/mL (Cutoff=200); Benzodiazepines Screen,Urine Negative ng/mL (Cutoff=200); Cannabinoid Screen,Urine Negative ng/mL (Cutoff = 50); Cocaine Screen,Urine Negative ng/mL (Cutoff= 300); Creatinine,Urine 43 mg/dL; Opiate Screen,Urine Negative ng/mL (Cutoff=300); Phencyclidine Screen,Urine Negative ng/mL (Cutoff=25); Protein/Creatinine Ratio,Urine 0.16 mg/mg (0.00-0.20)
[2020-11-02] MEDS ORDERED: EPHEDrine 50 MG/ML VIAL IVP PRN (07:38)
[2020-11-02] MEDS ORDERED: *HR* FentaNYL (PF) 100 MCG/2 ML VIAL EP ONE (07:38)
[2020-11-02] MEDS ORDERED: Epidural Premix (fent/bupiv) 110 ML EP SCH (07:45)
[2020-11-02] MEDS ORDERED: Ropivacaine/PF 0.2% 20 ML VIAL ONE ×2 (08:25→18:17)
[2020-11-02] MEDS ORDERED: *HR* FentaNYL (PF) 100 MCG/2 ML VIAL ONE ×5 (08:25→18:17)
[2020-11-02] MEDS ORDERED: Methylergonovine 0.2 MG/ML AMPUL IM ONE (10:47)
[2020-11-02] MEDS ORDERED: Oxytocin 20 units/ LR 1000 mL 20 UNIT/1,000 ML BAG IVC ONE (18:57)
[2020-11-02] MEDS ORDERED: Oxytocin 20 units/ LR 1000 mL 20 UNIT/1,000 ML BAG IVC SCH (19:52)
[2020-11-02] MEDS ORDERED: Measles/Mumps/Rubella Vacc 0.5 ML VIAL SQ PRN (19:52)
[2020-11-02] MEDS: Ibuprofen 600 MG TABLET PO PRN (20:01)
[2020-11-02] MEDS: Acetaminophen 325 MG TABLET PO PRN (22:20)
[2020-11-03] MEDS: Ibuprofen 600 MG TABLET PO PRN (03:06)
[2020-11-03 03:55] LABS: Basophils % 0.2 %; Eosinophils # 0.1 K/mcL (0.0-0.6); Eosinophils % 0.3 %; Hematocrit 30.3 % (35.3-44.9); Hemoglobin 10.2 g/dL (11.5-15.4); Immature Granulocytes % 0.4 % (0-4); Lymphocytes # 2.9 K/mcL (0.6-4.6); Lymphocytes % 18.3 %; Mean Corpuscular HGB Conc 33.7 g/dL (31.6-35.5); Mean Corpuscular Hemoglobin 31.7 pg (28.0-33.3); Mean Corpuscular Volume 94.1 fL (83.0-100.0); Mean Platelet Volume 9.6 fL (9.4-12.4); Monocytes # 1.2 K/mcL (0.0-1.3); Monocytes % 7.7 %; Neutrophils # 11.4 K/mcL (1.6-8.9); Platelet Count 200 K/mcL (140-400); Red Blood Count 3.22 M/mcL (3.82-4.97); Red Cell Distribution Width 13.8 % (11.5-14.5); Segmented Neutrophils % 73.1 %; White Blood Count 15.6 K/mcL (4.3-11.1)
[2020-11-03] MEDS ORDERED: *HR* Enoxaparin 40 MG/0.4 ML SYRINGE SQ SCH (06:00)
[2020-11-03] MEDS: Acetaminophen 325 MG TABLET PO PRN (06:05)
[2020-11-03] MEDS ORDERED: Prenatal Vit/FA 1 EACH TABLET PO SCH (09:00)
[2020-11-03 16:11] VITALS: BP 117/66
== END 2020-11-03 18:56 | disposition home or self-care (01) | DRG 806 ==
LOC: 1NENULAB 04:08 → 1NENUOBS 20:45
PROVIDERS: ADMIT Obstetrics & Gynecology; ATTEND Obstetrics & Gynecology